=== PATIENT | male | born 1995 | race African-American/Black ===

== ENCOUNTER 2024-05-14 20:51 | Emergency (ER) | payer MEDICAID, OTHER ==
[~2024-05-14] VITALS: Ht 160 cm; Wt 56.0 kg
[2024-05-14 20:57] VITALS: O2SAT 100
[2024-05-14 21:04] VITALS: BP 111/65; PULSE 65; TEMP 98.5; O2SAT 98
[2024-05-14 21:40] VITALS: RESP 17
[2024-05-14] MEDS: KETOROLAC 15MG/ML VIAL IM ONE (21:40)
[2024-05-14] MEDS ORDERED: NAPR-1176 MT (21:55)
[2024-05-14] MEDS ORDERED: LIDO700A15 TP (21:55)
== END 2024-05-14 23:00 ==
LOC: ER 20:51
DX: M25.522 Pain in left elbow (principal); V19.9XXA Pedal cyclist (driver) (passenger) injured in unspecified traffic accident, initial encounter; Y93.89 Activity, other specified; Y92.89 Other specified places as the place of occurrence of the external cause; Y99.8 Other external cause status
CPT/HCPCS: 73080; 96372; 99283; J1885; Z7610; A4565